=== PATIENT | female | born 1980 | race African-American/Black ===

== ENCOUNTER 2020-11-09 20:47 | Emergency (ER) | payer OTHER ==
[~2020-11-09] VITALS: Ht 167.6 cm; Wt 95.5 kg
[~2020-11-09 20:47] MED LIST: DIVA-80 PO; NALT50TA PO; OLAN10TA22 PO; OMEG-135 PO
[2020-11-09 22:37] LABS: COVID AG,FIA SOURCE NASOPHARYNGEAL
[2020-11-09 22:51] LABS: RAPID GROUP A STREP NEGATIVE (NEGATIVE)
[2020-11-10] MEDS ORDERED: SODIUM CHLORIDE 0.9% 1,000 ML IV ONE (00:30)
[2020-11-10] MEDS ORDERED: DEXAMETHASONE SOD PHOS 4 MG/ML VIAL IVP ONE (00:30)
[2020-11-10] MEDS ORDERED: KETOROLAC TROMETHAMINE 30 MG/ML VIAL IVP ONE (00:30)
[2020-11-10 01:26] VITALS: BP 126/64
[2020-11-10] MEDS ORDERED: AMOX TR/POT CLAV 875 MG/125 MG TABLET PO ONE (01:30)
[2020-11-10] MEDS ORDERED: PredniSONE 20 MG TABLET PO ONE (01:30)
[2020-11-10] MEDS ORDERED: OxyCODONE HCL 5 MG IR TABLET PO ONE (01:30)
== END 2020-11-10 02:09 | disposition home or self-care (01) ==
LOC: EMS 20:47
DX: J36 Peritonsillar abscess (principal); F17.210 Nicotine dependence, cigarettes, uncomplicated; F31.9 Bipolar disorder, unspecified; F20.9 Schizophrenia, unspecified; G89.29 Other chronic pain; Z20.822 Contact with and (suspected) exposure to COVID-19; Z88.6 Allergy status to analgesic agent
CPT/HCPCS: 87426; 87430; 99284; J1100; J1885; J7030; J7512

== ENCOUNTER 2020-11-12 01:13 | Emergency (ER) | payer OTHER ==
[~2020-11-12] VITALS: Ht 170.2 cm; Wt 95.5 kg
[2020-11-12] MEDS ORDERED: SERT-158 PO (01:20)
[2020-11-12] MEDS ORDERED: QUET25TA PO (01:20)
[2020-11-12 02:08] VITALS: BP 120/80
[2020-11-12] MEDS ORDERED: OLANZapine 5 MG TABLET PO ONE (02:45)
[2020-11-12] MEDS ORDERED: LORazepam 1 MG TABLET PO ONE (02:45)
== END 2020-11-12 02:35 | disposition left against medical advice (07) ==
LOC: EMS 01:19
DX: F41.9 Anxiety disorder, unspecified (principal); F31.9 Bipolar disorder, unspecified; F20.9 Schizophrenia, unspecified; F17.210 Nicotine dependence, cigarettes, uncomplicated; F12.90 Cannabis use, unspecified, uncomplicated; Z88.6 Allergy status to analgesic agent
CPT/HCPCS: 99281; 99283

== ENCOUNTER 2021-07-15 10:17 | Emergency (ER) | payer MEDICARE, MEDICAID ==
[~2021-07-15] VITALS: Ht 170.2 cm; Wt 93.2 kg
[~2021-07-15 10:17] MED LIST changes: +OMEG-108 PO; -OMEG-135 PO; +QUET25TA PO; +SERT-158 PO
[2021-07-15 11:41] LABS: BASOPHILS % (AUTO) 0.7 % (0.0-2.0); EOSINOPHILS % (AUTO) 0.8 % (1.0-6.0); HEMATOCRIT 35.6 % (36-46); HEMOGLOBIN 11.7 g/dL (12.0-16.0); LYMPHOCYTES # (AUTO) 2.9 K/uL (1.0-4.8); LYMPHOCYTES % (AUTO) 21.7 % (22.0-44.0); MEAN CORPUSCULAR HEMOGLOBIN 29.7 pg (26.0-34.0); MEAN CORPUSCULAR HGB CONC 32.9 G/dL (31.0-37.0); MEAN CORPUSCULAR VOLUME 90 fL (80-100); MONOCYTES # (AUTO) 0.9 K/uL (0.1-1.0); MONOCYTES % (AUTO) 6.5 % (2.0-9.0); NEUTROPHILS # (AUTO) 9.3 K/uL (1.8-7.7); NEUTROPHILS % (AUTO) 70.3 % (40.0-70.0); PLATELET COUNT (AUTO) 287 K/uL (150-450); RED BLOOD CELL COUNT(AUTO) 3.94 MIL/uL (4.00-5.20); RED CELL DISTRIBUTION WIDTH 13.8 % (11.5-14.5)
[2021-07-15 11:56] LABS: ANION GAP 9 mmol/L (8-16); CALCIUM, TOTAL 8.3 mg/dL (8.8-10.5); CARBON DIOXIDE 26 mmol/L (22-29); CHLORIDE 106 mmol/L (98-107); CREATININE 0.54 mg/dL (0.60-1.30); GLOMERULAR FILTR. RATE CALC > 60 mL/min (>60); GLUCOSE,RANDOM 74 mg/dL (70-110); POTASSIUM 3.7 mmol/L (3.5-5.1); SODIUM SERUM 141 mmol/L (136-145); UREA NITROGEN, BLOOD 8 mg/dL (7-18)
[2021-07-15 12:00] LABS: ALANINE AMINOTRANSFERASE 12 U/L (12-78); ALBUMIN 3.2 g/dL (3.4-5.0); ALKALINE PHOSPHATASE 161 U/L (46-116); ASPARTATE AMINOTRANSFERASE 9 U/L (15-37); BILIRUBIN,TOTAL 0.2 mg/dL (0.1-1.0)
[2021-07-15] MEDS ORDERED: OxyCODONE HCL/ACETAMINOPHEN 5-325 MG TABLET PO ONE (15:00)
[2021-07-15] MEDS ORDERED: ARIP15TA27 PO ×2 (15:19→18:08)
[2021-07-15] MEDS ORDERED: HYDR-4527 PO ×2 (15:21→18:09)
[2021-07-15] MEDS ORDERED: METH-659 PO ×2 (15:21→18:09)
[2021-07-15 15:52] VITALS: BP 117/63
[2021-07-15] MEDS ORDERED: IBUP-2070 PO (18:09)
== END 2021-07-15 15:56 | disposition home or self-care (01) ==
LOC: EMS 10:17
DX: M79.604 Pain in right leg (principal); G89.29 Other chronic pain; M54.50 Low back pain, unspecified; F31.9 Bipolar disorder, unspecified; F17.210 Nicotine dependence, cigarettes, uncomplicated; F12.90 Cannabis use, unspecified, uncomplicated; Z76.0 Encounter for issue of repeat prescription; Z88.6 Allergy status to analgesic agent
CPT/HCPCS: 72070; 72100; 80053; 85025; 99284

== ENCOUNTER 2022-02-02 18:01 | Emergency (ER) | payer MEDICARE, MEDICAID ==
[~2022-02-02] VITALS: Ht 170.2 cm; Wt 79.0 kg
[~2022-02-02 18:01] MED LIST changes: +ARIP15TA27 PO; +HYDR-4527 PO; +IBUP-2070 PO; +METH-659 PO; -OMEG-108 PO; +OMEG-135 PO
[2022-02-02 18:20] VITALS: BP 117/78
[2022-02-02] MEDS ORDERED: IBUP-2070 PO (18:23)
[2022-02-02] MEDS ORDERED: SULF-261 PO (18:23)
[2022-02-02] MEDS ORDERED: CEPH-558 PO (18:23)
[2022-02-02] MEDS ORDERED: CEPHALEXIN MONOHYDRATE 500 MG CAPSULE PO ONE (18:30)
[2022-02-02] MEDS ORDERED: IBUPROFEN 600 MG TABLET PO ONE (18:30)
[2022-02-02] MEDS ORDERED: SULFAMETHOX/TRIMETH DS 800-160 MG/TABLET PO ONE (18:30)
== END 2022-02-02 18:49 | disposition home or self-care (01) ==
LOC: EMS 18:02
DX: L02.415 Cutaneous abscess of right lower limb (principal); G89.29 Other chronic pain; F20.9 Schizophrenia, unspecified; F17.210 Nicotine dependence, cigarettes, uncomplicated; F12.90 Cannabis use, unspecified, uncomplicated; Z98.890 Other specified postprocedural states; Z88.8 Allergy status to other drugs, medicaments and biological substances
CPT/HCPCS: 99284; Z7502; Z7610

== ENCOUNTER 2022-06-26 08:40 | Emergency (ER) | payer MEDICARE, MEDICAID ==
[~2022-06-26] VITALS: Ht 165.1 cm; Wt 86.4 kg
[~2022-06-26 08:40] MED LIST changes: -ARIP15TA27 PO; +CEPH-558 PO; -DIVA-80 PO; -HYDR-4527 PO; +IBUP-1492 PO; -IBUP-2070 PO; -METH-659 PO; -NALT50TA PO; -OLAN10TA22 PO; -OMEG-135 PO; -QUET25TA PO; -SERT-158 PO; +SULF-261 PO
[2022-06-26 09:02] LABS: COVID AG,FIA SOURCE NASAL SWAB
[2022-06-26] MEDS ORDERED: IBUPROFEN 600 MG TABLET PO ONE (09:15)
[2022-06-26 09:20] VITALS: BP 118/71
[2022-06-26 09:21] LABS: RAPID GROUP A STREP NEGATIVE (NEGATIVE)
[2022-06-26 09:31] LABS: INFLUENZA TYPE A NEGATIVE FOR TYPE A (NEGATIVE); INFLUENZA TYPE B NEGATIVE FOR TYPE B (NEGATIVE)
[2022-06-26] MEDS ORDERED: BENZ-227 PO (23:52)
[2022-06-26] MEDS ORDERED: GUAIFDM PO (23:52)
== END 2022-06-26 09:40 | disposition home or self-care (01) ==
LOC: EMS 08:48
DX: B34.9 Viral infection, unspecified (principal); F31.9 Bipolar disorder, unspecified; F17.210 Nicotine dependence, cigarettes, uncomplicated; F12.90 Cannabis use, unspecified, uncomplicated; G89.29 Other chronic pain; Z98.890 Other specified postprocedural states; Z88.6 Allergy status to analgesic agent; Z20.822 Contact with and (suspected) exposure to COVID-19; Z48.02 Encounter for removal of sutures
CPT/HCPCS: 87430; 87804; 99283

== ENCOUNTER 2022-06-26 20:38 | Emergency (ER) | payer MEDICARE, MEDICAID ==
[~2022-06-26] VITALS: Ht 165.1 cm; Wt 86.4 kg
[2022-06-26] MEDS ORDERED: GuaiFENesin/D-METHORPHAN [SUGAR-FREE] 200-20MG/10 ML SYRUP UDCUP PO ONE (23:45)
[2022-06-26] MEDS ORDERED: IBUPROFEN 100 MG/5 ML SUSPENSION UDCUP PO ONE (23:45)
[2022-06-26] MEDS ORDERED: LIDOCAINE 2% VISCOUS 15 ML SOLUTION UDCUP PO ONE (23:45)
[2022-06-26] MEDS ORDERED: BENZ-227 PO (23:52)
[2022-06-26] MEDS ORDERED: GUAIFDM PO (23:52)
[2022-06-27 00:01] VITALS: BP 125/80
== END 2022-06-27 01:18 | disposition home or self-care (01) ==
LOC: EMS 21:21
DX: J06.9 Acute upper respiratory infection, unspecified (principal); J20.9 Acute bronchitis, unspecified; F31.9 Bipolar disorder, unspecified; F20.9 Schizophrenia, unspecified; F17.210 Nicotine dependence, cigarettes, uncomplicated; F12.90 Cannabis use, unspecified, uncomplicated; G89.29 Other chronic pain; Z98.890 Other specified postprocedural states; Z88.6 Allergy status to analgesic agent
CPT/HCPCS: 99284; Z7502; Z7610

== ENCOUNTER 2022-07-07 21:34 | Emergency (ER) | payer MEDICARE, MEDICAID ==
[~2022-07-07] VITALS: Ht 175.3 cm; Wt 85.0 kg
[~2022-07-07 21:34] MED LIST changes: +BENZ-227 PO; -CEPH-558 PO; +GUAIFDM PO; -IBUP-1492 PO; -SULF-261 PO
[2022-07-07 21:52] VITALS: BP 142/84
[2022-07-07] MEDS ORDERED: LORazepam 2 MG/ML VIAL IM ONE (22:30)
[2022-07-07] MEDS ORDERED: DiphenhydrAMINE HCL 50 MG/ML VIAL IM ONE (22:30)
[2022-07-07] MEDS ORDERED: HALOPERIDOL LACTATE 5 MG/ML VIAL IM ONE (22:30)
[2022-07-07] MEDS ORDERED: VANCOMYCIN HCL 1.25 GM in DEXTROSE 5%-WATER 250 ML IV ONE (22:45)
[2022-07-07] MEDS ORDERED: CEPH-558 PO (22:54)
[2022-07-07] MEDS ORDERED: DOXY-354 PO (22:54)
[2022-07-07] MEDS ORDERED: DOXYCYCLINE HYCLATE 100 MG TABLET PO ONE (23:00)
[2022-07-07] MEDS ORDERED: HYDROGEN PEROXIDE 118 ML SOLUTION TP ONE (23:00)
[2022-07-07] MEDS ORDERED: CEPHALEXIN MONOHYDRATE 500 MG CAPSULE PO ONE (23:00)
== END 2022-07-07 23:00 | disposition home or self-care (01) ==
LOC: EMS 22:27
DX: L02.415 Cutaneous abscess of right lower limb (principal); F20.9 Schizophrenia, unspecified; F31.9 Bipolar disorder, unspecified; G89.29 Other chronic pain; F17.210 Nicotine dependence, cigarettes, uncomplicated; F12.90 Cannabis use, unspecified, uncomplicated; Z98.890 Other specified postprocedural states; Z88.6 Allergy status to analgesic agent
CPT/HCPCS: 99283; J1200; J1630; J3370; J7060

== ENCOUNTER 2022-08-20 22:35 | Emergency (ER) | payer MEDICARE, MEDICAID ==
[~2022-08-20] VITALS: Ht 167.6 cm; Wt 95.5 kg
[~2022-08-20 22:35] MED LIST changes: +CEPH-558 PO; +DOXY-354 PO
[2022-08-20 23:00] VITALS: BP 141/59
[2022-08-21] MEDS ORDERED: SULFAMETHOX/TRIMETH DS 800-160 MG/TABLET PO ONE (02:30)
[2022-08-21] MEDS ORDERED: IBUPROFEN 600 MG TABLET PO ONE (02:30)
[2022-08-21] MEDS ORDERED: CefTRIAXone SODIUM 1 GM/VIAL IM ONE (02:30)
[2022-08-21] MEDS ORDERED: LIDOCAINE/PF 1% 2 ML VIAL IM ONE (02:30)
== END 2022-08-21 03:30 | disposition left against medical advice (07) ==
LOC: EMS 23:03
DX: L03.115 Cellulitis of right lower limb (principal); F31.9 Bipolar disorder, unspecified; F20.9 Schizophrenia, unspecified; F17.210 Nicotine dependence, cigarettes, uncomplicated; F12.90 Cannabis use, unspecified, uncomplicated; G89.29 Other chronic pain; Z98.890 Other specified postprocedural states
CPT/HCPCS: 99283; 73610; 96372; J0696; J3490

== ENCOUNTER 2022-09-09 19:15 | Emergency (ER) | payer MEDICARE, MEDICAID ==
[~2022-09-09] VITALS: Ht 165.1 cm; Wt 95.5 kg
[2022-09-10 02:33] VITALS: BP 108/68
[2022-09-10] MEDS ORDERED: IBUPROFEN 600 MG TABLET PO ONE (03:00)
== END 2022-09-10 03:30 | disposition home or self-care (01) ==
LOC: EMS 19:18
DX: M25.571 Pain in right ankle and joints of right foot (principal); F31.9 Bipolar disorder, unspecified; F20.9 Schizophrenia, unspecified; F17.210 Nicotine dependence, cigarettes, uncomplicated; G89.29 Other chronic pain; F12.90 Cannabis use, unspecified, uncomplicated; Z98.890 Other specified postprocedural states; Z88.8 Allergy status to other drugs, medicaments and biological substances
CPT/HCPCS: 29540; 99282; Z7502; Z7610

== ENCOUNTER 2022-09-28 22:25 | Emergency (ER) | payer MEDICARE, MEDICAID ==
[2022-09-29] MEDS ORDERED: IBUPROFEN 600 MG TABLET PO ONE (00:15)
[2022-09-29 01:00] VITALS: BP 124/73
== END 2022-09-29 01:17 | disposition home or self-care (01) ==
LOC: EDBD 22:25 → EMS 22:25 → MERGE 22:25 → EMS 09-29 01:17
DX: M54.12 Radiculopathy, cervical region (principal); Z59.00 Homelessness unspecified
CPT/HCPCS: 99283

== ENCOUNTER 2022-10-03 01:05 | Emergency (ER) | payer MEDICARE, MEDICAID ==
[~2022-10-03] VITALS: Ht 170.2 cm; Wt 91.0 kg
[2022-10-03 01:13] VITALS: BP 123/59
[2022-10-03] MEDS ORDERED: BACLOFEN 10 MG TABLET PO ONE (01:30)
[2022-10-03] MEDS ORDERED: IBUPROFEN 600 MG TABLET PO ONE (01:30)
[2022-10-03] MEDS ORDERED: BACL10TA PO (02:22)
[2022-10-03] MEDS ORDERED: IBUP-1554 PO (02:22)
== END 2022-10-03 02:35 | disposition home or self-care (01) ==
LOC: EMS 01:05
DX: S80.02XA Contusion of left knee, initial encounter (principal); F20.9 Schizophrenia, unspecified; F31.9 Bipolar disorder, unspecified; G89.29 Other chronic pain; F17.210 Nicotine dependence, cigarettes, uncomplicated; F12.90 Cannabis use, unspecified, uncomplicated; Z98.890 Other specified postprocedural states; Z88.8 Allergy status to other drugs, medicaments and biological substances; Z59.00 Homelessness unspecified; W01.0XXA Fall on same level from slipping, tripping and stumbling without subsequent striking against object, initial encounter; Y93.89 Activity, other specified; Y92.89 Other specified places as the place of occurrence of the external cause; Y99.8 Other external cause status
CPT/HCPCS: 99283

== ENCOUNTER 2022-10-15 23:58 | Emergency (ER) | payer MEDICARE, MEDICAID ==
[~2022-10-15] VITALS: Ht 157.5 cm; Wt 91.0 kg
[~2022-10-15 23:58] MED LIST changes: +BACL10TA PO; -BENZ-227 PO; -CEPH-558 PO; -DOXY-354 PO; -GUAIFDM PO; +IBUP-1554 PO
[2022-10-16 00:02] VITALS: BP 130/70
[2022-10-16] MEDS ORDERED: IBUPROFEN 600 MG TABLET PO ONE (01:30)
[2022-10-17] MEDS ORDERED: AZIT250T9 PO (03:18)
[2022-10-17] MEDS ORDERED: IBUP-1492 PO (03:18)
== END 2022-10-16 02:19 | disposition home or self-care (01) ==
LOC: EMS 10-16 00:01
DX: S90.01XA Contusion of right ankle, initial encounter (principal); M19.90 Unspecified osteoarthritis, unspecified site; F31.9 Bipolar disorder, unspecified; F20.9 Schizophrenia, unspecified; G89.29 Other chronic pain; F12.90 Cannabis use, unspecified, uncomplicated; F17.210 Nicotine dependence, cigarettes, uncomplicated; Z98.890 Other specified postprocedural states; Z88.5 Allergy status to narcotic agent; X58.XXXA Exposure to other specified factors, initial encounter; Y93.89 Activity, other specified; Y92.89 Other specified places as the place of occurrence of the external cause; Y99.8 Other external cause status
CPT/HCPCS: 99283

== ENCOUNTER 2022-10-17 01:39 | Emergency (ER) | payer MEDICARE, MEDICAID ==
[~2022-10-17] VITALS: Ht 167.6 cm; Wt 75.0 kg
[2022-10-17] MEDS ORDERED: IBUPROFEN 600 MG TABLET PO ONE (02:15)
[2022-10-17 02:41] LABS: BASOPHILS % (AUTO) 0.6 % (0.0-2.0); EOSINOPHILS % (AUTO) 2.9 % (1.0-6.0); HEMATOCRIT 39.7 % (36-46); HEMOGLOBIN 13.2 g/dL (12.0-16.0); LYMPHOCYTES # (AUTO) 3.4 K/uL (1.0-4.8); LYMPHOCYTES % (AUTO) 42.3 % (22.0-44.0); MEAN CORPUSCULAR HEMOGLOBIN 30.3 pg (26.0-34.0); MEAN CORPUSCULAR HGB CONC 33.1 G/dL (31.0-37.0); MEAN CORPUSCULAR VOLUME 92 fL (80-100); MONOCYTES # (AUTO) 0.5 K/uL (0.1-1.0); MONOCYTES % (AUTO) 5.9 % (2.0-9.0); NEUTROPHILS # (AUTO) 3.9 K/uL (1.8-7.7); NEUTROPHILS % (AUTO) 48.3 % (40.0-70.0); PLATELET COUNT (AUTO) 344 K/uL (150-450); RED BLOOD CELL COUNT(AUTO) 4.33 MIL/uL (4.00-5.20); RED CELL DISTRIBUTION WIDTH 13.9 % (11.5-14.5)
[2022-10-17 02:52] LABS: ANION GAP 9 mmol/L (8-16); CALCIUM, TOTAL 8.9 mg/dL (8.8-10.5); CARBON DIOXIDE 29 mmol/L (22-29); CHLORIDE 102 mmol/L (98-107); CREATININE 0.77 mg/dL (0.60-1.30); GLOMERULAR FILTR. RATE CALC > 60 mL/min (>60); GLUCOSE,RANDOM 82 mg/dL (70-110); POTASSIUM 3.4 mmol/L (3.5-5.1); SODIUM SERUM 140 mmol/L (136-145)
[2022-10-17 03:00] VITALS: BP 129/66
[2022-10-17 03:04] LABS: ALANINE AMINOTRANSFERASE 25 U/L (12-78); ALBUMIN 3.5 g/dL (3.4-5.0); ALKALINE PHOSPHATASE 83 U/L (46-116); ASPARTATE AMINOTRANSFERASE 21 U/L (15-37); BILIRUBIN,TOTAL 0.2 mg/dL (0.1-1.0); HCG,QUANTITATIVE < 1 mIU/mL (0-6); LIPASE 75 U/L (73-393); TOTAL PROTEIN, SERUM 7.5 g/dL (6.4-8.2)
[2022-10-17] MEDS ORDERED: AZIT250T9 PO (03:18)
[2022-10-17] MEDS ORDERED: IBUP-1492 PO (03:18)
== END 2022-10-17 05:27 | disposition home or self-care (01) ==
LOC: EMS 01:41
DX: R10.84 Generalized abdominal pain (principal); J18.9 Pneumonia, unspecified organism; M19.90 Unspecified osteoarthritis, unspecified site; F31.9 Bipolar disorder, unspecified; F20.9 Schizophrenia, unspecified; G89.29 Other chronic pain; F17.210 Nicotine dependence, cigarettes, uncomplicated; F12.90 Cannabis use, unspecified, uncomplicated; Z98.890 Other specified postprocedural states; Z88.5 Allergy status to narcotic agent
CPT/HCPCS: 71045; 80053; 83690; 84702; 85025; 99284; 99406; 36415-L1; 36415-TC

== ENCOUNTER 2022-10-27 22:46 | Emergency (ER) | payer MEDICARE, MEDICAID ==
[~2022-10-27] VITALS: Ht 170.2 cm; Wt 95.5 kg
[~2022-10-27 22:46] MED LIST changes: -BACL10TA PO; +IBUP-1492 PO; -IBUP-1554 PO
[2022-10-28] MEDS ORDERED: IBUPROFEN 600 MG TABLET PO ONE (01:15)
[2022-10-28 02:28] LABS: BASOPHILS % (AUTO) 0.9 % (0.0-2.0); EOSINOPHILS % (AUTO) 2.1 % (1.0-6.0); HEMATOCRIT 39.3 % (36-46); LYMPHOCYTES # (AUTO) 2.6 K/uL (1.0-4.8); MEAN CORPUSCULAR HEMOGLOBIN 30.4 pg (26.0-34.0); MEAN CORPUSCULAR HGB CONC 33.1 G/dL (31.0-37.0); MEAN CORPUSCULAR VOLUME 92 fL (80-100); MONOCYTES # (AUTO) 0.5 K/uL (0.1-1.0); MONOCYTES % (AUTO) 5.9 % (2.0-9.0); NEUTROPHILS # (AUTO) 4.4 K/uL (1.8-7.7); NEUTROPHILS % (AUTO) 57.1 % (40.0-70.0); PLATELET COUNT (AUTO) 311 K/uL (150-450); RED BLOOD CELL COUNT(AUTO) 4.28 MIL/uL (4.00-5.20); RED CELL DISTRIBUTION WIDTH 14.1 % (11.5-14.5)
[2022-10-28 02:48] LABS: ALANINE AMINOTRANSFERASE 22 U/L (12-78); ALBUMIN 3.2 g/dL (3.4-5.0); ALKALINE PHOSPHATASE 82 U/L (46-116); ANION GAP 8 mmol/L (8-16); ASPARTATE AMINOTRANSFERASE 15 U/L (15-37); BILIRUBIN,TOTAL 0.1 mg/dL (0.1-1.0); CALCIUM, TOTAL 8.8 mg/dL (8.8-10.5); CARBON DIOXIDE 27 mmol/L (22-29); CHLORIDE 104 mmol/L (98-107); CREATININE 0.57 mg/dL (0.60-1.30); GLOMERULAR FILTR. RATE CALC > 60 mL/min (>60); GLUCOSE,RANDOM 99 mg/dL (70-110); POTASSIUM 4.4 mmol/L (3.5-5.1); SODIUM SERUM 139 mmol/L (136-145); TOTAL PROTEIN, SERUM 6.9 g/dL (6.4-8.2)
[2022-10-28] MEDS ORDERED: IBUP-1492 PO (02:52)
[2022-10-28 02:57] VITALS: BP 123/71
== END 2022-10-28 03:02 | disposition home or self-care (01) ==
LOC: EMS 22:47
DX: R20.2 Paresthesia of skin (principal); F20.9 Schizophrenia, unspecified; F31.9 Bipolar disorder, unspecified; G89.29 Other chronic pain; F17.210 Nicotine dependence, cigarettes, uncomplicated; F12.90 Cannabis use, unspecified, uncomplicated; Z88.6 Allergy status to analgesic agent
CPT/HCPCS: 80053; 83735; 84703; 85025; 99283

== ENCOUNTER 2022-12-03 22:51 | Emergency (ER) | payer MEDICARE, MEDICAID ==
[~2022-12-03] VITALS: Ht 170.2 cm; Wt 100.0 kg
[2022-12-03 23:00] VITALS: TEMP 98.7
[2022-12-04 02:45] VITALS: BP 123/77; PULSE 88; RESP 18
== END 2022-12-04 02:55 | disposition home or self-care (01) ==
LOC: EMS 22:54
DX: F41.9 Anxiety disorder, unspecified (principal); G89.29 Other chronic pain; F31.9 Bipolar disorder, unspecified; F20.9 Schizophrenia, unspecified; M17.11 Unilateral primary osteoarthritis, right knee; F17.210 Nicotine dependence, cigarettes, uncomplicated; F12.90 Cannabis use, unspecified, uncomplicated; F15.10 Other stimulant abuse, uncomplicated; Z90.49 Acquired absence of other specified parts of digestive tract; Z88.6 Allergy status to analgesic agent
CPT/HCPCS: 99281; Z7502

== ENCOUNTER 2022-12-25 22:07 | Emergency (ER) | payer MEDICARE, MEDICAID ==
[~2022-12-25] VITALS: Ht 167.6 cm; Wt 93.8 kg
[2022-12-25] MEDS ORDERED: KETOROLAC TROMETHAMINE 30 MG/ML VIAL IM ONE (23:00)
[2022-12-25] MEDS ORDERED: BACITRACIN 0.9 GM PACKET OINTMENT TP ONE (23:00)
[2022-12-25] MEDS ORDERED: IBUP-1492 PO (23:53)
[2022-12-26 00:21] VITALS: BP 129/74; PULSE 90; RESP 18; TEMP 98.3
== END 2022-12-26 00:40 | disposition home or self-care (01) ==
LOC: EMS 22:13
DX: G89.29 Other chronic pain (principal); M25.571 Pain in right ankle and joints of right foot; F31.9 Bipolar disorder, unspecified; F20.9 Schizophrenia, unspecified; F17.210 Nicotine dependence, cigarettes, uncomplicated; F12.90 Cannabis use, unspecified, uncomplicated; Z90.49 Acquired absence of other specified parts of digestive tract; Z88.6 Allergy status to analgesic agent
CPT/HCPCS: 99283; 96372; J1885

== ENCOUNTER 2022-12-31 09:17 | Emergency (ER) | payer MEDICARE, MEDICAID ==
[~2022-12-31] VITALS: Ht 167.6 cm; Wt 66.4 kg
[2022-12-31 09:19] VITALS: TEMP 98.8
[2022-12-31] MEDS ORDERED: KETOROLAC TROMETHAMINE 30 MG/ML VIAL IM ONE (12:15)
[2022-12-31 13:48] VITALS: BP 110/75; PULSE 88; RESP 16
== END 2022-12-31 13:59 | disposition home or self-care (01) ==
LOC: EMS 09:17
DX: G89.29 Other chronic pain (principal); M25.571 Pain in right ankle and joints of right foot; F31.9 Bipolar disorder, unspecified; F20.9 Schizophrenia, unspecified; F12.90 Cannabis use, unspecified, uncomplicated; F17.210 Nicotine dependence, cigarettes, uncomplicated; Z88.6 Allergy status to analgesic agent; Z79.899 Other long term (current) drug therapy
CPT/HCPCS: 99283; 96372; J1885

== ENCOUNTER 2023-01-02 20:21 | Emergency (ER) | payer MEDICARE, MEDICAID ==
[~2023-01-02] VITALS: Ht 170.2 cm; Wt 85.0 kg
[2023-01-02] MEDS ORDERED: IBUPROFEN 600 MG TABLET PO ONE (22:00)
[2023-01-02] MEDS ORDERED: DiphenhydrAMINE HCL 25 MG CAPSULE PO ONE (22:00)
[2023-01-02] MEDS ORDERED: DIPH50CA37 PO (22:04)
[2023-01-02 22:15] VITALS: BP 132/78; PULSE 88; RESP 18; TEMP 98
== END 2023-01-02 22:36 | disposition home or self-care (01) ==
LOC: EMS 20:22
DX: G47.00 Insomnia, unspecified (principal); M25.512 Pain in left shoulder; F31.9 Bipolar disorder, unspecified; F20.9 Schizophrenia, unspecified; G89.29 Other chronic pain; F17.210 Nicotine dependence, cigarettes, uncomplicated; F12.90 Cannabis use, unspecified, uncomplicated; Z90.49 Acquired absence of other specified parts of digestive tract; Z88.6 Allergy status to analgesic agent; Z59.00 Homelessness unspecified
CPT/HCPCS: 99283

== ENCOUNTER 2023-01-04 03:02 | Emergency (ER) | payer MEDICARE, MEDICAID ==
[~2023-01-04 03:02] MED LIST changes: +DIPH50CA37 PO
[2023-01-04] MEDS ORDERED: LORazepam 1 MG TABLET PO ONE (03:15)
[2023-01-04] MEDS ORDERED: DiphenhydrAMINE HCL 25 MG CAPSULE PO ONE (03:15)
[2023-01-04 04:02] VITALS: BP 121/81; PULSE 80; RESP 18; TEMP 98.6
== END 2023-01-04 04:47 | disposition home or self-care (01) ==
LOC: EMS 03:03
DX: G47.00 Insomnia, unspecified (principal); F41.9 Anxiety disorder, unspecified; F20.9 Schizophrenia, unspecified; F31.9 Bipolar disorder, unspecified; G89.29 Other chronic pain; F17.210 Nicotine dependence, cigarettes, uncomplicated; F12.90 Cannabis use, unspecified, uncomplicated; Z90.49 Acquired absence of other specified parts of digestive tract; Z59.00 Homelessness unspecified; Z88.6 Allergy status to analgesic agent
CPT/HCPCS: 99283

== ENCOUNTER 2023-01-09 07:37 | Emergency (ER) | payer MEDICARE, MEDICAID ==
[~2023-01-09] VITALS: Ht 162.6 cm; Wt 84.1 kg
[2023-01-09 10:41] LABS: APPEARANCE,URINE CLEAR (CLEAR); BILIRUBIN,URINE NEGATIVE (NEGATIVE); GLUCOSE, URINE (UA) NEGATIVE (NEGATIVE); KETONES,URINE NEGATIVE (NEGATIVE); LEUKOCYTE ESTERASE ,URINE NEGATIVE (NEGATIVE); NITRATE,URINE NEGATIVE (NEGATIVE); OCCULT BLOOD,URINE NEGATIVE (NEGATIVE); PROTEIN,URINE NEGATIVE (NEGATIVE); SPECIFIC GRAVITIY, URINE 1.029 (1.003-1.030); UROBILINOGEN,URINE <=1.0 mg/dL (<=1.0)
[2023-01-09 11:01] VITALS: BP 112/78; PULSE 84; RESP 18; TEMP 98.1
[2023-01-09] MEDS ORDERED: POLY119P3 PO (11:08)
== END 2023-01-09 11:57 | disposition home or self-care (01) ==
LOC: EMS 07:38
DX: K59.00 Constipation, unspecified (principal); R10.84 Generalized abdominal pain; M19.90 Unspecified osteoarthritis, unspecified site; F31.9 Bipolar disorder, unspecified; F20.9 Schizophrenia, unspecified; G89.29 Other chronic pain; F17.210 Nicotine dependence, cigarettes, uncomplicated; F12.90 Cannabis use, unspecified, uncomplicated; Z90.49 Acquired absence of other specified parts of digestive tract; Z98.890 Other specified postprocedural states; Z88.6 Allergy status to analgesic agent
CPT/HCPCS: 74022; 81003; 99284

== ENCOUNTER 2023-01-12 23:56 | Emergency (ER) | payer MEDICARE, MEDICAID ==
[~2023-01-12] VITALS: Ht 172.7 cm; Wt 79.5 kg
[~2023-01-12 23:56] MED LIST changes: +POLY119P3 PO
[2023-01-13 01:07] VITALS: BP 117/68; PULSE 96; RESP 17; TEMP 98.3
== END 2023-01-13 02:10 | disposition home or self-care (01) ==
LOC: EMS 23:57
DX: G89.29 Other chronic pain (principal); M25.571 Pain in right ankle and joints of right foot; M19.90 Unspecified osteoarthritis, unspecified site; F31.9 Bipolar disorder, unspecified; F20.9 Schizophrenia, unspecified; F12.90 Cannabis use, unspecified, uncomplicated; F17.210 Nicotine dependence, cigarettes, uncomplicated; Z90.49 Acquired absence of other specified parts of digestive tract; Z98.890 Other specified postprocedural states; Z88.6 Allergy status to analgesic agent
CPT/HCPCS: 99281; Z7502

== ENCOUNTER 2023-02-08 00:13 | Emergency (ER) | payer MEDICARE, MEDICAID ==
[~2023-02-08] VITALS: Ht 172.7 cm; Wt 95.0 kg
[~2023-02-08 00:13] MED LIST changes: -POLY119P3 PO
[2023-02-08 00:17] VITALS: BP 123/86; PULSE 88; RESP 17; TEMP 98.2
[2023-02-08] MEDS ORDERED: IBUPROFEN 600 MG TABLET PO ONE (02:30)
== END 2023-02-08 02:45 | disposition home or self-care (01) ==
LOC: EMS 00:17
DX: G89.29 Other chronic pain (principal); M25.571 Pain in right ankle and joints of right foot; M19.90 Unspecified osteoarthritis, unspecified site; F31.9 Bipolar disorder, unspecified; F20.9 Schizophrenia, unspecified; F17.210 Nicotine dependence, cigarettes, uncomplicated; F12.90 Cannabis use, unspecified, uncomplicated; Z90.49 Acquired absence of other specified parts of digestive tract; Z98.890 Other specified postprocedural states; Z88.6 Allergy status to analgesic agent
CPT/HCPCS: 99283

== ENCOUNTER 2023-04-09 12:42 | Emergency (ER) | payer MEDICARE, MEDICAID ==
[~2023-04-09] VITALS: Ht 170.2 cm; Wt 72.7 kg
[2023-04-09 12:59] VITALS: TEMP 98.7
[2023-04-09] MEDS: ONDANSETRON HCL 4 MG/2 ML VIAL IVP ONE (15:22)
[2023-04-09] MEDS: SODIUM CHLORIDE 0.9% 2,000 ML IV ONE (15:22)
[2023-04-09] MEDS: KETOROLAC TROMETHAMINE 30 MG/ML VIAL IVP ONE (15:23)
[2023-04-09 15:25] LABS: BASOPHILS % (AUTO) 0.5 % (0.0-2.0); EOSINOPHILS % (AUTO) 0.2 % (1.0-6.0); HEMOGLOBIN 12.3 g/dL (12.0-16.0); LYMPHOCYTES # (AUTO) 2.2 K/uL (1.0-4.8); LYMPHOCYTES % (AUTO) 17.4 % (22.0-44.0); MEAN CORPUSCULAR HEMOGLOBIN 30.5 pg (26.0-34.0); MEAN CORPUSCULAR HGB CONC 33.2 G/dL (31.0-37.0); MEAN CORPUSCULAR VOLUME 92 fL (80-100); MONOCYTES # (AUTO) 0.7 K/uL (0.1-1.0); MONOCYTES % (AUTO) 5.4 % (2.0-9.0); NEUTROPHILS # (AUTO) 9.8 K/uL (1.8-7.7); NEUTROPHILS % (AUTO) 76.5 % (40.0-70.0); PLATELET COUNT (AUTO) 339 K/uL (150-450); RED BLOOD CELL COUNT(AUTO) 4.02 MIL/uL (4.00-5.20); RED CELL DISTRIBUTION WIDTH 13.6 % (11.5-14.5); WHITE BLOOD COUNT (AUTO) 12.8 K/uL (4.5-11.0)
[2023-04-09 15:35] LABS: ANION GAP 5 mmol/L (8-16); CALCIUM, TOTAL 8.9 mg/dL (8.8-10.5); CARBON DIOXIDE 29 mmol/L (22-29); CHLORIDE 103 mmol/L (98-107); CREATININE 0.77 mg/dL (0.60-1.30); GLOMERULAR FILTR. RATE CALC > 60 mL/min (>60); GLUCOSE,RANDOM 106 mg/dL (70-110); POTASSIUM 4.1 mmol/L (3.5-5.1); SODIUM SERUM 137 mmol/L (136-145); UREA NITROGEN, BLOOD 19 mg/dL (7-18)
[2023-04-09 15:41] LABS: ALANINE AMINOTRANSFERASE 33 U/L (12-78); ALBUMIN 3.3 g/dL (3.4-5.0); ALKALINE PHOSPHATASE 88 U/L (46-116); ASPARTATE AMINOTRANSFERASE 26 U/L (15-37); BILIRUBIN,TOTAL 0.2 mg/dL (0.1-1.0); LIPASE 20 U/L (16-77); TOTAL PROTEIN, SERUM 7.3 g/dL (6.4-8.2)
[2023-04-09 15:43] LABS: TROPONIN I-HIGH SENSITIVITY 7 ng/L (<51)
[2023-04-09 15:45] LABS: ALCOHOL, BLOOD (SERUM) < 3 mg/dL (0-10)
[2023-04-09 15:47] LABS: LACTIC ACID 2.6 mmol/L (0.4-2.0)
[2023-04-09 17:02] VITALS: BP 108/80; PULSE 100; RESP 18
[2023-04-09 17:07] LABS: APPEARANCE,URINE CLEAR (CLEAR); BILIRUBIN,URINE NEGATIVE (NEGATIVE); COLOR,URINE LIGHT YELLOW (YELLOW); GLUCOSE, URINE (UA) NEGATIVE (NEGATIVE); KETONES,URINE NEGATIVE (NEGATIVE); LEUKOCYTE ESTERASE ,URINE NEGATIVE (NEGATIVE); NITRATE,URINE NEGATIVE (NEGATIVE); OCCULT BLOOD,URINE NEGATIVE (NEGATIVE); PROTEIN,URINE TRACE mg/dL (NEGATIVE); SPECIFIC GRAVITIY, URINE 1.032 (1.003-1.030)
[2023-04-09 17:18] LABS: ALCOHOL, URINE DRUG SCREEN NEGATIVE (NEGATIVE); AMPHET/METH SCREEN,URINE POSITIVE (NEGATIVE); BARBITURATE SCREEN, URINE NEGATIVE (NEGATIVE); BENZODIAZEPINES SCREEN,URINE NEGATIVE (NEGATIVE); CANNABINOID SCREEN,URINE POSITIVE (NEGATIVE); COCAINE SCREEN,URINE NEGATIVE (NEGATIVE); METHADONE SCREEN, URINE NEGATIVE (NEGATIVE); OPIATE SCREEN,URINE NEGATIVE (NEGATIVE); PHENCYCLIDINE SCREEN,URINE NEGATIVE (NEGATIVE)
[2023-04-09 17:45] LABS: BACTERIA,URINE None Seen /HPF (None Seen); RBC,URINE None Seen /HPF (0-2); SQUAMOUS EPITHELIAL CELL,UR Few /LPF (None Seen); WBC,URINE None Seen /HPF (0-5)
[2023-04-09] MEDS ORDERED: ONDA-104 PO (18:46)
== END 2023-04-09 19:02 | disposition home or self-care (01) ==
LOC: EMS 12:42
DX: F15.10 Other stimulant abuse, uncomplicated (principal); R10.84 Generalized abdominal pain; R11.2 Nausea with vomiting, unspecified; F20.9 Schizophrenia, unspecified; M19.90 Unspecified osteoarthritis, unspecified site; F31.9 Bipolar disorder, unspecified; G89.29 Other chronic pain; F12.90 Cannabis use, unspecified, uncomplicated; Z90.49 Acquired absence of other specified parts of digestive tract; Z98.890 Other specified postprocedural states; Z59.00 Homelessness unspecified
CPT/HCPCS: 99284; 96374; 96361; 96375; 80053; 81001; 83605; 83690; 84484; 85025; 36415; 80307; J1885; J2405; J7030; G0480

== ENCOUNTER 2023-04-14 03:10 | Emergency (ER) | payer MEDICARE, MEDICAID ==
[~2023-04-14] VITALS: Ht 177.8 cm; Wt 85.0 kg
[~2023-04-14 03:10] MED LIST changes: -DIPH50CA37 PO; -IBUP-1492 PO; +ONDA-104 PO
[2023-04-14 03:12] VITALS: TEMP 99.7
[2023-04-14 04:28] VITALS: BP 120/60; PULSE 88; RESP 17
[2023-04-14] MEDS ORDERED: SULF-261 PO (04:38)
[2023-04-14] MEDS ORDERED: IBUP-1492 PO (04:38)
[2023-04-14] MEDS ORDERED: IBUPROFEN 600 MG TABLET PO ONE (04:45)
[2023-04-14] MEDS ORDERED: SULFAMETHOX/TRIMETH DS 800-160 MG/TABLET PO ONE (04:45)
== END 2023-04-14 05:18 | disposition home or self-care (01) ==
LOC: EMS 03:11
DX: G89.29 Other chronic pain (principal); L98.499 Non-pressure chronic ulcer of skin of other sites with unspecified severity; M19.90 Unspecified osteoarthritis, unspecified site; F31.9 Bipolar disorder, unspecified; F20.9 Schizophrenia, unspecified; F17.210 Nicotine dependence, cigarettes, uncomplicated; F12.90 Cannabis use, unspecified, uncomplicated; F15.90 Other stimulant use, unspecified, uncomplicated; Z90.49 Acquired absence of other specified parts of digestive tract; Z98.890 Other specified postprocedural states; Z88.6 Allergy status to analgesic agent
CPT/HCPCS: 99283

== ENCOUNTER 2023-10-30 16:53 | Emergency (ER) | payer MEDICARE, MEDICAID ==
[~2023-10-30] VITALS: Ht 165.1 cm; Wt 77.3 kg
[~2023-10-30 16:53] MED LIST changes: +ARIP10TA38 PO; +IBUP-1492 PO; -ONDA-104 PO; +TRAZ-257 PO
[2023-10-30 16:59] VITALS: TEMP 98.5
[2023-10-30] MEDS: CEPHALEXIN MONOHYDRATE 500 MG CAPSULE PO ONE (22:55)
[2023-10-30] MEDS: IBUPROFEN 600 MG TABLET PO ONE (22:55)
[2023-10-30] MEDS ORDERED: CEPH-558 PO (23:06)
[2023-10-30 23:34] VITALS: BP 119/79; PULSE 90; RESP 18
[2023-10-31] MEDS ORDERED: TRAZ-257 PO (19:49)
[2023-10-31] MEDS ORDERED: ARIP10TA38 PO (19:49)
== END 2023-10-31 00:20 | disposition home or self-care (01) ==
LOC: EMS 16:58
DX: L08.9 Local infection of the skin and subcutaneous tissue, unspecified (principal); M25.571 Pain in right ankle and joints of right foot; F17.210 Nicotine dependence, cigarettes, uncomplicated; F15.10 Other stimulant abuse, uncomplicated; F12.90 Cannabis use, unspecified, uncomplicated
CPT/HCPCS: 99283

== ENCOUNTER 2023-10-31 18:42 | Emergency (ER) | payer MEDICARE, MEDICAID ==
[~2023-10-31] VITALS: Ht 165.1 cm; Wt 75.0 kg
[~2023-10-31 18:42] MED LIST changes: +CEPH-558 PO; -IBUP-1492 PO
[2023-10-31 19:02] VITALS: BP 134/67; PULSE 84; RESP 18; TEMP 97.9
[2023-10-31] MEDS ORDERED: TRAZ-257 PO (19:49)
[2023-10-31] MEDS ORDERED: ARIP10TA38 PO (19:49)
[2023-10-31] MEDS: LORazepam 2 MG TABLET PO ONE (20:50)
[2023-10-31] MEDS: IVERMECTIN 3 MG TABLET PO ONE (20:50)
== END 2023-10-31 20:52 | disposition home or self-care (01) ==
LOC: EMS 18:42
DX: L30.9 Dermatitis, unspecified (principal); B85.1 Pediculosis due to Pediculus humanus corporis; F25.9 Schizoaffective disorder, unspecified; F41.9 Anxiety disorder, unspecified; F32.A Depression, unspecified; F17.210 Nicotine dependence, cigarettes, uncomplicated; F12.90 Cannabis use, unspecified, uncomplicated; F15.10 Other stimulant abuse, uncomplicated
CPT/HCPCS: 99283

== ENCOUNTER 2023-11-01 20:43 | Emergency (ER) | payer MEDICARE, MEDICAID ==
[~2023-11-01] VITALS: Ht 167.6 cm; Wt 65.9 kg
[2023-11-01 21:05] VITALS: BP 118/88; PULSE 84; RESP 16; TEMP 98.6
[2023-11-01] MEDS: IBUPROFEN 600 MG TABLET PO ONE (23:04)
[2023-11-01] MEDS: DiphenhydrAMINE HCL 50 MG CAPSULE PO ONE (23:04)
== END 2023-11-01 23:11 | disposition home or self-care (01) ==
LOC: EMS 20:43
DX: M79.602 Pain in left arm (principal); F15.10 Other stimulant abuse, uncomplicated; F17.210 Nicotine dependence, cigarettes, uncomplicated; F12.90 Cannabis use, unspecified, uncomplicated
CPT/HCPCS: 99283

== ENCOUNTER 2024-08-18 20:17 | Emergency (ER) | payer MEDICARE, OTHER ==
[~2024-08-18] VITALS: Ht 172.7 cm; Wt 79.5 kg
[2024-08-18 20:37] VITALS: BP 128/83; PULSE 80; RESP 19; TEMP 97.7; O2SAT 100
[2024-08-19] MEDS: SODIUM CHLORIDE 0.9% 1,000 ML IV ONE (00:04)
== END 2024-08-19 00:45 | disposition home or self-care (01) ==
LOC: EMS 20:17
DX: R10.9 Unspecified abdominal pain (principal); F12.90 Cannabis use, unspecified, uncomplicated; F20.9 Schizophrenia, unspecified; F17.210 Nicotine dependence, cigarettes, uncomplicated; Z98.84 Bariatric surgery status; Z90.49 Acquired absence of other specified parts of digestive tract; Z59.00 Homelessness unspecified; Z79.899 Other long term (current) drug therapy
CPT/HCPCS: 99283; Z7502

== ENCOUNTER 2024-09-24 19:33 | Emergency (ER) | payer MEDICARE, OTHER ==
[~2024-09-24] VITALS: Ht 167.6 cm; Wt 85.0 kg
[2024-09-24 19:35] VITALS: BP 130/90; PULSE 88; RESP 16; TEMP 97.9; O2SAT 100
== END 2024-09-25 00:20 | disposition left against medical advice (07) ==
LOC: EMS 19:33
DX: R11.10 Vomiting, unspecified (principal); Z53.21 Procedure and treatment not carried out due to patient leaving prior to being seen by health care provider

== ENCOUNTER 2024-09-26 08:05 | Emergency (ER) | payer MEDICARE, OTHER ==
[~2024-09-26] VITALS: Ht 172.7 cm; Wt 100.0 kg
[2024-09-26] MEDS: LORazepam 2 MG/ML VIAL IM ONE (08:24)
[2024-09-26 08:37] LABS: BASOPHILS % (AUTO) 0.3 % (0.0-2.0); EOSINOPHILS % (AUTO) 2.8 % (1.0-6.0); HEMATOCRIT 38.5 % (36-46); HEMOGLOBIN 12.5 g/dL (12.0-16.0); LYMPHOCYTES # (AUTO) 2.6 K/uL (1.0-4.8); LYMPHOCYTES % (AUTO) 31.8 % (22.0-44.0); MEAN CORPUSCULAR HEMOGLOBIN 29.4 pg (26.0-34.0); MEAN CORPUSCULAR HGB CONC 32.4 G/dL (31.0-37.0); MEAN CORPUSCULAR VOLUME 91 fL (80-100); MONOCYTES # (AUTO) 0.6 K/uL (0.1-1.0); MONOCYTES % (AUTO) 6.9 % (2.0-9.0); NEUTROPHILS # (AUTO) 4.7 K/uL (1.8-7.7); NEUTROPHILS % (AUTO) 58.2 % (40.0-70.0); PLATELET COUNT (AUTO) 303 K/uL (150-450); RED BLOOD CELL COUNT(AUTO) 4.25 MIL/uL (4.00-5.20); RED CELL DISTRIBUTION WIDTH 14.4 % (11.5-14.5); WHITE BLOOD COUNT (AUTO) 8.1 K/uL (4.5-11.0)
[2024-09-26 08:46] LABS: ANION GAP 8 mmol/L (8-16); CALCIUM, TOTAL 8.6 mg/dL (8.8-10.5); CARBON DIOXIDE 26 mmol/L (22-29); CHLORIDE 100 mmol/L (98-107); CREATININE 0.62 mg/dL (0.60-1.30); GLOMERULAR FILTR. RATE CALC > 60 mL/min (>60); GLUCOSE,RANDOM 62 mg/dL (70-110); POTASSIUM 3.6 mmol/L (3.5-5.1); SODIUM SERUM 134 mmol/L (136-145); UREA NITROGEN, BLOOD 13 mg/dL (7-18)
[2024-09-26 08:50] LABS: COVID AG,FIA SOURCE NASAL SWAB
[2024-09-26 09:34] LABS: SARS-COV2 (COVID) ANTIGEN,FIA Negative (Negative)
[2024-09-26 10:03] VITALS: TEMP 98.4
[2024-09-26 13:07] VITALS: BP 127/85; PULSE 75; RESP 16; O2SAT 100
== END 2024-09-26 13:49 | disposition home or self-care (01) ==
LOC: EMS 08:05
DX: F15.10 Other stimulant abuse, uncomplicated (principal); F41.9 Anxiety disorder, unspecified; F12.90 Cannabis use, unspecified, uncomplicated; F20.9 Schizophrenia, unspecified; F17.210 Nicotine dependence, cigarettes, uncomplicated; Z98.84 Bariatric surgery status; Z90.49 Acquired absence of other specified parts of digestive tract; Z79.899 Other long term (current) drug therapy; Z20.822 Contact with and (suspected) exposure to COVID-19
CPT/HCPCS: 99285; 87426; 80048; 84703; 85025; 36415; 82962; 96372; G0480; J2060

== ENCOUNTER 2024-10-22 16:02 | Emergency (ER) | payer MEDICARE, OTHER ==
[~2024-10-22] VITALS: Ht 162.6 cm; Wt 75.0 kg
[~2024-10-22 16:02] MED LIST changes: +HYDR25TA83 PO
[2024-10-22 16:05] VITALS: TEMP 98.3
[2024-10-22 17:00] VITALS: BP 140/85; PULSE 80; RESP 16; O2SAT 98
[2024-10-22] MEDS: ACETAMINOPHEN 500 MG TABLET PO ONE (17:04)
== END 2024-10-22 17:15 | disposition home or self-care (01) ==
LOC: EMS 16:04
DX: G89.29 Other chronic pain (principal); M19.90 Unspecified osteoarthritis, unspecified site; F20.9 Schizophrenia, unspecified; F31.9 Bipolar disorder, unspecified; F12.90 Cannabis use, unspecified, uncomplicated; F15.90 Other stimulant use, unspecified, uncomplicated; F17.210 Nicotine dependence, cigarettes, uncomplicated; Z98.84 Bariatric surgery status; Z90.49 Acquired absence of other specified parts of digestive tract; Z59.00 Homelessness unspecified; Z79.899 Other long term (current) drug therapy
CPT/HCPCS: 99282; 99283

== ENCOUNTER 2025-01-15 07:33 | Emergency (ER) | payer OTHER ==
[~2025-01-15] VITALS: Ht 167.6 cm; Wt 81.0 kg
[~2025-01-15 07:33] MED LIST changes: -CEPH-558 PO
[2025-01-15 07:50] VITALS: TEMP 98.3
[2025-01-15] MEDS: LORazepam 2 MG/ML VIAL IM ONE (07:56)
[2025-01-15 08:19] LABS: COVID AG,FIA SOURCE NASAL SWAB
[2025-01-15 08:34] LABS: PLATELET COUNT (AUTO) 338 K/uL (150-450); RED BLOOD CELL COUNT(AUTO) 4.29 MIL/uL (4.00-5.20); RED CELL DISTRIBUTION WIDTH 14.1 % (11.5-14.5); WHITE BLOOD COUNT (AUTO) 9.1 K/uL (4.5-11.0)
[2025-01-15 08:40] LABS: CALCIUM, TOTAL 8.4 mg/dL (8.8-10.5); CREATININE 0.67 mg/dL (0.60-1.30); GLOMERULAR FILTR. RATE CALC > 60 mL/min (>60); GLUCOSE,RANDOM 94 mg/dL (70-110); SODIUM SERUM 141 mmol/L (136-145); UREA NITROGEN, BLOOD 15 mg/dL (7-18)
[2025-01-15 08:49] LABS: SARS-COV2 (COVID) ANTIGEN,FIA Negative (Negative)
[2025-01-15 08:56] VITALS: BP 118/72; PULSE 82; RESP 18; O2SAT 99
== END 2025-01-15 10:27 ==
LOC: EMS 07:34
DX: F20.9 Schizophrenia, unspecified (principal); F15.90 Other stimulant use, unspecified, uncomplicated; M19.90 Unspecified osteoarthritis, unspecified site; G89.29 Other chronic pain; F31.9 Bipolar disorder, unspecified; F17.210 Nicotine dependence, cigarettes, uncomplicated; F12.90 Cannabis use, unspecified, uncomplicated; Z90.49 Acquired absence of other specified parts of digestive tract; Z20.822 Contact with and (suspected) exposure to COVID-19; Z79.899 Other long term (current) drug therapy
CPT/HCPCS: 99285; 87426; 80048; 84703; 85025; 36415; 96372; G0480; J2060

== ENCOUNTER 2025-02-01 07:41 | Emergency (ER) | payer OTHER ==
[~2025-02-01] VITALS: Ht 167.6 cm; Wt 72.7 kg
[2025-02-01 07:59] VITALS: TEMP 98.1
[2025-02-01] MEDS: QUEtiapine FUMARATE 50 MG ER TABLET PO ONE (08:11)
[2025-02-01] MEDS: KETOROLAC TROMETHAMINE 60 MG/2 ML VIAL IM ONE (08:57)
[2025-02-01 09:21] LABS: APPEARANCE,URINE CLEAR (CLEAR); GLUCOSE, URINE (UA) NEGATIVE (NEGATIVE); LEUKOCYTE ESTERASE ,URINE NEGATIVE (NEGATIVE); NITRATE,URINE NEGATIVE (NEGATIVE); OCCULT BLOOD,URINE NEGATIVE (NEGATIVE); PH,URINE DRUG SCREEN 6.0 (5.0-8.0); SPECIFIC GRAVITIY, URINE 1.020 (1.003-1.030)
[2025-02-01 09:28] LABS: ALCOHOL, URINE DRUG SCREEN NEGATIVE (NEGATIVE); AMPHET/METH SCREEN,URINE POSITIVE (NEGATIVE); BARBITURATE SCREEN, URINE NEGATIVE (NEGATIVE); CANNABINOID SCREEN,URINE POSITIVE (NEGATIVE); COCAINE SCREEN,URINE NEGATIVE (NEGATIVE); METHADONE SCREEN, URINE NEGATIVE (NEGATIVE)
[2025-02-01] MEDS: ZIPRASIDONE MESYLATE 20 MG/VIAL IM ONE (09:37)
[2025-02-01] MEDS ORDERED: MIDAZOLAM HCL 5 MG/ML VIAL IM ONE (10:00)
[2025-02-01 12:29] LABS: PLATELET COUNT (AUTO) 270 K/uL (150-450); RED BLOOD CELL COUNT(AUTO) 4.31 MIL/uL (4.00-5.20); RED CELL DISTRIBUTION WIDTH 14.0 % (11.5-14.5); WHITE BLOOD COUNT (AUTO) 8.5 K/uL (4.5-11.0)
[2025-02-01 12:44] LABS: CALCIUM, TOTAL 8.2 mg/dL (8.8-10.5); CREATININE 0.43 mg/dL (0.60-1.30); GLOMERULAR FILTR. RATE CALC > 60 mL/min (>60); GLUCOSE,RANDOM 76 mg/dL (70-110); SODIUM SERUM 137 mmol/L (136-145); UREA NITROGEN, BLOOD 12 mg/dL (7-18)
[2025-02-01 15:30] VITALS: BP 125/69; PULSE 92; RESP 17; O2SAT 98
== END 2025-02-01 18:18 | disposition home or self-care (01) ==
LOC: EMS 07:45
DX: F15.90 Other stimulant use, unspecified, uncomplicated (principal); M25.571 Pain in right ankle and joints of right foot; F17.210 Nicotine dependence, cigarettes, uncomplicated; F12.90 Cannabis use, unspecified, uncomplicated; F20.9 Schizophrenia, unspecified; F31.9 Bipolar disorder, unspecified; F41.9 Anxiety disorder, unspecified; G89.29 Other chronic pain; M19.90 Unspecified osteoarthritis, unspecified site; Z79.899 Other long term (current) drug therapy; Z90.49 Acquired absence of other specified parts of digestive tract; Z98.84 Bariatric surgery status
CPT/HCPCS: 80048; 80307; 81003; 85025; 96372; 99284; J1200; J1630; J1885; J3486

== ENCOUNTER 2025-02-07 04:06 | Emergency (ER) | payer OTHER ==
[~2025-02-07] VITALS: Ht 167.6 cm; Wt 81.8 kg
[2025-02-07 04:17] VITALS: TEMP 98.005280
[2025-02-07] MEDS: KETOROLAC TROMETHAMINE 60 MG/2 ML VIAL IM ONE (04:39)
[2025-02-07 05:30] VITALS: BP 122/80; PULSE 101; RESP 18; O2SAT 99
== END 2025-02-07 05:50 | disposition home or self-care (01) ==
LOC: EMS 04:06
DX: F15.10 Other stimulant abuse, uncomplicated (principal); M25.571 Pain in right ankle and joints of right foot; M25.572 Pain in left ankle and joints of left foot; F12.90 Cannabis use, unspecified, uncomplicated; F31.9 Bipolar disorder, unspecified; F20.9 Schizophrenia, unspecified; F17.210 Nicotine dependence, cigarettes, uncomplicated; M19.90 Unspecified osteoarthritis, unspecified site; Z90.49 Acquired absence of other specified parts of digestive tract; Z98.84 Bariatric surgery status; Z79.899 Other long term (current) drug therapy
CPT/HCPCS: 99283; 96372; J1885